=== PATIENT | female | born 1950 | race Caucasian/White ===

== ENCOUNTER 2017-09-05 16:30 | Emergency (ER) | payer OTHER ==
[2017-09-05 17:04] VITALS: BP 165/97; PULSE 96; TEMP 98.4; BMI 34.9
--- NOTE | 2017-09-05 17:17 | PDOC ---
History of Present Illness - General History Source: Patient Exam Limitations: No Limitations - History of Present Illness Initial Comments: 09/05/17 17:26 The patient is a 67 year old female, with a significant past medical history of HTN, who presents to the emergency department with, one hour s/p bite on her right mandible. The patient reports she was walking past a house when a pet dog bit her face. She reports that the local owner operator truck driver said the dog was vaccinated. After the incident she washed her face with soap and water then used hydrogen peroxide and Polysporin on her laceration. She denies recent fevers, chills, headache or dizziness. She denies recent nausea, vomit, diarrhea or constipation. She denies recent dysuria, frequency, urgency or hematuria. She denies recent chest pain or shortness of breath. Allergies: NKA Past surgical history: Knee replacement and appendectomy. Social history: Nonsmoker. Denies EtOH use and recreational drug use. <Lynn Angel - Last Filed: 09/05/17 17:26> <Florentino Morelos - Last Filed: 09/05/17 17:36> - General Chief Complaint: Bite Stated Complaint: DOG BITE Time Seen by Provider: 09/05/17 16:49 Past History <Lynn Angel - Last Filed: 09/05/17 17:26> - Past Medical History CVA: Yes (TIA) COPD: No HTN: Yes Hypercholesterolemia: Yes Other medical history: LYMES - Immunization History Immunization Up to Date: Yes - Suicide/Smoking/Psychosocial Hx Smoking History: Never smoked Hx Alcohol Use: No Drug/Substance Use Hx: No Substance Use Type: None <Florentino Morelos - Last Filed: 09/05/17 17:36> - Past Medical History Allergies/Adverse Reactions: Allergies Allergy/AdvReac Type Severity Reaction Status Date / Time No Known Allergies Allergy Verified 09/05/17 16:51 Home Medications: Ambulatory Orders Amox-Tr/K Cl [Augmentin 875-125mg Tablet -] 1 tab PO BID #10 tablet 09/05/17 Atorvastatin Ca [Lipitor] 20 mg PO HS 09/05/17 Diltiazem HCl [Diltiazem 24Hr Cd] 240 mg PO DAILY 09/05/17 Metoprolol Succinate 200 mg PO DAILY 09/05/17 Review of Systems - Review of Systems Able to Perform ROS?: Yes Comments:: 09/05/17 17:27 CONSTITUTIONAL: Absent: fever, no chills, no fatigue EYES: Absent: visual changes ENT: Absent: ear pain, no sore throat FACE: Present: +Laceration on right mandible. CARDIOVASCULAR: Absent: chest pain, no palpitations RESPIRATORY: Absent: cough, no SOB GI: Absent: abdominal pain, no nausea, no vomiting, no constipation, no diarrhea GENITOURINARY: Absent: dysuria, no frequency, no hematuria MUSKULOSKELETAL: Absent: back pain, no arthralgia, no myalgia SKIN: Absent: rash NEURO: Absent: headache All Other Systems: Reviewed and Negative <Lynn Angel - Last Filed: 09/05/17 17:26> *Physical Exam - Vital Signs Last Vital Signs Temp Pulse Resp BP Pulse Ox 98.4 F 96 H 20 165/97 98 09/05/17 16:31 09/05/17 16:31 09/05/17 16:31 09/05/17 16:31 09/05/17 16:31 <Lynn Angel - Last Filed: 09/05/17 17:26> - Vital Signs Last Vital Signs Temp Pulse Resp BP Pulse Ox 98.4 F 96 H 20 165/97 98 09/05/17 16:31 09/05/17 16:31 09/05/17 16:31 09/05/17 16:31 09/05/17 16:31 <Florentino Morelos - Last Filed: 09/05/17 17:36> Medical Decision Making - Medical Decision Making 09/05/17 17:22 Wound care: 1 cm superficial laceration over the angle of the mandible, right. Skin surrounding the wound was prepped with Betadine. The wound was gently scrubbed with normal saline and irrigated with gentle pressure. Explored, superficial. No foreign body visible or palpable. Wound is not through and through. Mucosa is intact and appears atraumatic. Dentition not involved Wound edges are well approximated naturally and bacitracin was applied, with a gauze dressing. No closure necessary. Antibiotics prescribed. Follow up immediately if sign of infection, including pain, swelling, redness, or drainage. <Florentino Morelos - Last Filed: 09/05/17 17:36> *DC/Admit/Observation/Transfer - Attestations Scribe Attestion: 09/05/17 17:28 Documentation prepared by Lynn Angel, acting as medical record clerk for Florentino Brunson MD. <Lynn Angel - Last Filed: 09/05/17 17:26> - Discharge Dispostion Admit: No <Florentino Morelos - Last Filed: 09/05/17 17:36> Diagnosis at time of Disposition: Dog bite of chin Qualifiers: Encounter type: initial encounter Qualified Code(s): S01.85XA - Open bite of other part of head, initial encounter - Discharge Dispostion Disposition: HOME Condition at time of disposition: Improved - Prescriptions Prescriptions: Amox-Tr/K Cl [Augmentin 875-125mg Tablet -] 1 tab PO BID #10 tablet - Patient Instructions Printed Discharge Instructions: How to Care for a Domestic Animal Bite Additional Instructions: Clean daily and dressed with antibiotic ointment. Keep covered. See primary physician or return to the emergency room at first sign of infection , which may include increased pain, swelling, redness, or drainage. Otherwise finish antibiotics as directed. The police and the health Department have been notified and will contact you regarding further treatment if necessary.
[2017-09-05] MEDS ORDERED: AMOX TR/POT CLAV 875MG/125MG TABLETS (FP) PO ONE (17:18)
[2017-09-05] MEDS ORDERED: AMOX TR/POT CLAV 875MG/125MG TABLETS (FP) ONE (17:28)
== END 2017-09-05 17:36 | disposition home or self-care (01) ==
LOC: FER 16:30
DX: S01.85XA Open bite of other part of head, initial encounter (principal); W54.0XXA Bitten by dog, initial encounter; Y93.89 Activity, other specified; Y92.9 Unspecified place or not applicable; Y99.9 Unspecified external cause status; I10 Essential (primary) hypertension
CPT/HCPCS: 99282-25